=== PATIENT | male | born 1980 | race Caucasian/White ===

== ENCOUNTER 2021-04-21 13:06 | Emergency (ER) | payer OTHER, SELFPAY ==
--- NOTE | ~2021-04-21 | CT_ITS ---
EXAMINATION: CT HEAD WITHOUT CONTRAST CLINICAL INFORMATION: History of fall with hematoma of back of head. Headache. COMPARISON: None TECHNIQUE: Contiguous axial imaging was performed from the skull base to vertex without intravenous administration of contrast. This CT examination was performed using dose optimization techniques as appropriate, variously including the following: *Automated exposure control *Adjustment of mA and/or kV according to patient size (this includes techniques or standardized protocols for targeted exams where dose is matched to indication/reason for exam; i.e. extremities or head) *Use of iterative reconstruction technique DLP: 770 mGy-cm FINDINGS: The brain parenchyma has normal attenuation. The rain-white matter differentiation is well preserved. No evidence of an acute major vascular territory infarction. No intracranial hemorrhage, extra-axial fluid collection, focal mass effect or midline shift. The ventricles have normal size and configuration; no hydrocephalus. The brainstem and cerebellum have a normal appearance. The cerebellar tonsils are in normal position. The visualized paranasal sinuses, mastoid air cells and middle ear cavities are well aerated. The orbits and globes are unremarkable. The temporomandibular joints are normal. A small right occipital subgaleal/scalp hematoma measures up to 0.8 cm thick. No calvarial fracture. CT/CT head/brain wo con IMPRESSION: * There is a right occipital scalp hematoma without calvarial fracture. * No evidence of acute cranial pathology..
[2021-04-21 13:10] VITALS: BP 159/85; PULSE 62; RESP 20; TEMP 36.6; O2SAT 97; BMI 26.6
--- NOTE | 2021-04-21 14:12 | ED.GENADULT ---
HPI - General Adult General Chief complaint: Wound/Laceration Stated complaint: abscess Time Seen by Provider: 04/21/21 14:11 Source: patient Mode of arrival: ambulatory Limitations: no limitations History of Present Illness HPI narrative: [age] year male came in for evaluation of headache. Patient woke up from sleep for days ago feeling hematoma on the back of his head with no bleeding with no laceration, patient been feeling numbness in the area of the hematoma in the back of his head, patient been feeling pressure headache, no photophobia, no neck stiffness, fever or chills. Patient is not known to have a seizure, head injury or known trauma. Related Data Home Medications Medication Instructions Recorded Confirmed No Known Home Meds 04/21/21 04/21/21 Allergies Allergy/AdvReac Type Severity Reaction Status Date / Time No Known Allergies Allergy Verified 04/21/21 11:51 Review of Systems Review of Systems: All other systems are reviewed and are negative Constitutional: Reports as per HPI and Reports no additional constitutional complaints Eyes: Reports as per HPI and Reports no additional eye complaints Reports system reviewed and no additional complaints, except as documented Cardiovascular: Reports as per HPI and Reports no additional cardiovascular complaints Respiratory: Reports as per HPI and Reports no additional respiratory complaints Gastrointestinal: Reports as per HPI and Reports no additional gastrointestinal complaints Genitourinary: Reports no additional female genitourinary complaints Musculoskeletal: Reports no additional musculoskeletal complaints Skin/Breast: Reports system reviewed and no additional complaints, except as docu Psychiatric: Reports no additional psychiatric complaints Endocrine: Reports no additional endocrine complaints Hematologic/Lymphatic: Reports no additional hematologic/lymphatic complaints Allergic/Immunologic: Reports no additional allergic/immunologic complaints Reports system reviewed and no additional complaints, except as documented and Reports Abnormal speech present [facility] Social History Social History Advance Directives: No Advance Directives Information Provided: No Physical Exam Vital Signs: Vital Signs: Last Vital Signs Temp 97.9 F 04/21/21 13:10 Pulse 62 04/21/21 13:10 Resp 20 04/21/21 13:10 BP 159/85 H 04/21/21 13:10 Pulse Ox 97 04/21/21 13:10 Body Mass Index 26.6 Vital signs have been reviewed as appeared to be correct. Blood pressure normal. Heart rate normal. Respiration rate normal. Temperature normal. Oxygen saturation normal. Appearance: Alert. Oriented X3. No acute distress. Head: Normal external exam. Normocephalic. Atraumatic. No Aceves signs noted. No raccoon eyes noted Eyes: PERRLA. EOMI. Conjunctiva and sclera normal. Eyelids normal. ENT: TM's Normal. Pharynx normal. Uvula midline. Moist mucous membranes. No trismus noted. No drooling noted. No muffled voice noted. Neck: Normal inspection. Neck supple. FROM. No adenopathy. Thyroid Normal. No meningeal signs. No neck mass noted. CVS: Normal heart rate and rhythm. Heart sound normal. No murmurs noted. Pulses normal throughout. Respiratory: No respiratory distress. Painless inspiration. Breath sounds normal. No wheezes/rales/rhonchi noted. Chest nontender. No accessory muscle usage noted or decreased air movement noted. Abdomen: Soft and nontender. Bowel sounds normal in all 4 quadrants. No distention noted. No organomegaly noted. No visible injury noted. Back: No CVA tenderness. Full range of motion noted. Skin: Skin warm and dry. Normal skin color. Normal skin turgor. No rashes/lesions/lacerations noted. Extremities: No lower extremity edema. Extremities exhibit normal range of motion. Extremities nontender. Neuro: Oriented X 3. Cranial nerve exam: II-XII are grossly intact No motor deficit. No sensory deficit. Reflexes normal. Course Course Course Narrative: Assessment and plan. 40-year-old male with 5 days of pressure headache, unclear etiology of small hematoma on the back of his head, patient has normal neuro exam, with normal CT of the head, will discharge the patient follow-up with PCP. Medical Decision Making Imaging Data CT scan - head: Radiologist's impression: ? There is a right occipital scalp hematoma without calvarial fracture. *? No evidence of acute cranial pathology.. Discharge Plan Discharge Clinical Impression: Headache Patient Disposition: Home, Self-Care Instructions: Acute Headache (ED) Prescriptions: No Action No Known Home Meds RF: 0 Referrals: Physician,Unknown J [Primary Care Provider] - 2 days Stand Alone Forms: Work/School Release
== END 2021-04-21 15:36 | disposition home or self-care (01) ==
PROVIDERS: Emergency Provider Emergency Medicine
DX: R51.9 Headache, unspecified (principal)
CPT/HCPCS: 70450; 99283; 99284

== ENCOUNTER 2021-05-27 15:29 | Emergency (ER) | payer OTHER, SELFPAY ==
--- NOTE | ~2021-05-27 | XR_ITS ---
EXAMINATION: XR HAND WRIST, LEFT CLINICAL INFORMATION: Laceration index finger with saw COMPARISON: None TECHNIQUE: 3 views of the combined hand and wrist are obtained in large [id number] images for a total of 3 views. FINDINGS: Fingers are partly superimposed on the lateral view. There is no visible acute or healing fracture, dislocation, destructive process. Bony mineralization is normal. There is no visible radiopaque soft tissue foreign body. Incidental small benign exostosis is present lateral neck fifth finger proximal phalanx measuring approximately 5 mm. The carpus is unremarkable. The ulnar variance is neutral. XR/XR hand wrist LT IMPRESSION: No fracture or dislocation or visible radiopaque soft tissue foreign body.
[2021-05-27 15:53] VITALS: BP 133/81; PULSE 93; RESP 18; TEMP 36.7; O2SAT 97; BMI 26.6
--- NOTE | 2021-05-27 16:02 | ED_ITS ---
HPI - Extremity Problem General Chief complaint: Extremity Injury, Upper Stated complaint: left hand laceration Time Seen by Provider: 05/27/21 16:05 Source: patient Mode of arrival: ambulatory Limitations: no limitations History of Present Illness HPI Narrative: Patient presents to ED for left hand index finger laceration which occurred at work. Patient states he was using the saw and looked away in finger slipped and a saw cut his left index finger. Patient has complete range of motion of finger. Patient denies any other trauma. Patient has movement and sensation of all fingers. Patient states up-to-date with tetanus. Related Data Previous Rx's Medication Instructions Recorded cephalexin 500 mg capsule 500 mg PO QID 7 Days #28 cap 05/27/21 naproxen 500 mg tablet 500 mg PO BID PRN 10 Days #20 tab 05/27/21 Allergies Allergy/AdvReac Type Severity Reaction Status Date / Time No Known Allergies Allergy Verified 04/21/21 11:51 Review of Systems Review of Systems: Yes all other systems are reviewed and are negative Constitutional: Constitutional: Reports as per HPI and Reports no additional constitutional complaints Eyes: Eyes: Reports as per HPI and Reports no additional eye complaints ENT: Reports system reviewed and no additional complaints, except as documented and Reports as per HPI Cardiovascular: Cardiovascular: Reports as per HPI and Reports no additional cardiovascular complaints Respiratory: Respiratory: Reports as per HPI and Reports no additional respiratory complaints Gastrointestinal: Gastrointestinal: Reports as per HPI and Reports no additional gastrointestinal complaints Genitourinary: Genitourinary: Reports no additional male genitourinary complaints and Reports as per HPI Musculoskeletal: Musculoskeletal: Reports no additional musculoskeletal complaints and Reports as per HPI Comments: left index finger laceration Integumentary/Breasts: Skin/Breast: Reports system reviewed and no additional complaints, except as docu and Reports as per HPI Neurologic: Reports system reviewed and no additional complaints, except as documented and Reports as per HPI Psychiatric: Psychiatric: Reports no additional psychiatric complaints and Reports as per HPI Endocrine: Endocrine: Reports no additional endocrine complaints and Reports as per HPI PMF Past Medical History Medical History (Updated 05/27/21 @ 16:54 by VELVET Watts) No known health problems Social History Social History Advance Directives: No Advance Directives Information Provided: No Physical Exam Vital Signs: Vital Signs: Last Vital Signs Temp 98.0 F 05/27/21 15:53 Pulse 93 05/27/21 15:53 Resp 18 05/27/21 15:53 BP 133/81 05/27/21 15:53 Pulse Ox 97 05/27/21 15:53 BMI result Body Mass Index 26.6 Const: General: cooperative, healthy appearing, comfortable, no acute distress and well developed Orientation/consciousness: oriented to time and patient oriented x3 HENMT: Head: Yes normal to inspection, Yes No palpable skull fracture present, Yes normocephalic and Yes atraumatic Eyes: General: appearance normal, both eyes and all related structures Neck: Neck: Yes normal visual inspection, Yes full ROM, Yes no lymphadenopathy, Yes no meningeal signs, Yes trachea midline, Yes supple, No anterior neck swelling and No tender Chest: Chest palpation & inspection: normal inspection of the chest and normal palpation of entire chest wall Resp: Effort & Inspection: normal respiratory effort and able to speak in complete sentences Auscultation: clear to auscultation bilaterally Cardio: Jugular venous distension: no JVD Heart sounds: S1 normal heart sound present and S2 normal heart sound present GI: Inspection: Yes normal to inspection and No abdominal wall ecchymosis Palpation (GI): Soft to palpation, not firm, nontender, no guarding and not rigid : General: No CVA tenderness and Yes no CVA tenderness Back/Spine/Pelvis: Back: no CVA tenderness, No CVA tenderness and No back tenderness Skin: Other: left Index finger laceration General skin exam: no rashes or lesions noted and elasticity normal Neuro: General: oriented to time, patient oriented x3, gait normal, tone normal, no meningeal signs and CN's II-XI intact bilaterally Extrem: General: Yes normal to inspection and Yes full ROM Hand/finger images: 1. Clean avulsion. Negative for muscle/fat exposure. Capillary refills intact. Complete range of motion of finger. No laceration re pair indicated. 2. Skin tear/abrasion. Negative for muscle/fat exposure. Capillary refill is intact. Complete range of motion. No laceration repair indicated. Motor/nerve/vascular exam intact Psych: Appearance: grossly normal, well kempt and not disheveled Course Course Course Narrative: Patient up-to-date with tetanus. No laceration repair indicat ed. X-ray ordered Reevaluation(s) Reevaluation #1: X-ray normal. Patient placed in Xeroform and will be discharged with antibiotic and follow-up were connected. Motor/neuro/medical exam of extremity intact. Time: 16:53 MDM - Extremity (Nontraumatic) MDM Narrative Medical decision making narrative: Avulsion of skin Discharge Plan Discharge Clinical Impression: Avulsion of skin of index finger Patient Disposition: Home, Self-Care Instructions: Skin Avulsion (ED) Additional Instructions: Your x-ray came back negative for fracture. You need to follow up with [facility]. You will be discharged with antibiotics to prevent infection. Return to the ED for any swelling, redness, pus discharge, foul odor, bluish black discoloration, fullness, hotness, inability to move finger, or any other concerning symptoms. Prescriptions: New cephalexin 500 mg capsule 500 mg PO QID 7 Days Qty: 28 RF: 0 naproxen 500 mg tablet 500 mg PO BID PRN (Reason: pain) 10 Days Qty: 20 RF: 0 Referrals: [facility] [Outside] - 2 days (Avulsion of skin index finger caused by saw at work) Interventions: ED Discharge Assessment Last Done: 05/27/21 17:19 Discharge Date/Time: 05/27/21 17:19 Print Language: Irish
[2021-05-27] MEDS: Ibuprofen 800 MG TABLET PO (16:09)
== END 2021-05-27 17:19 | disposition home or self-care (01) ==
PROVIDERS: Emergency Provider Emergency Medicine
DX: S61.211A Laceration without foreign body of left index finger without damage to nail, initial encounter (principal); W31.2XXA Contact with powered woodworking and forming machines, initial encounter; Y93.9 Activity, unspecified; Y92.89 Other specified places as the place of occurrence of the external cause; Y99.0 Civilian activity done for income or pay
CPT/HCPCS: 73110; 73130; 99283